=== PATIENT | female | born 1955 | race Caucasian/White ===

== ENCOUNTER → 2024-05-12 14:57 | Outpatient (BNVA) | payer MEDICARE, MEDICAID, SELFPAY | PROVIDERS: Visit Provider Physician Assistant | DX: M17.12 Unilateral primary osteoarthritis, left knee; Z01.818 Encounter for other preprocedural examination | CPT/HCPCS: 73560; 73565; 99204 ==

== ENCOUNTER 2024-07-11 13:21 | Outpatient (CLI) | payer MEDICARE, MEDICAID, SELFPAY ==
[2024-07-11 13:38] LABS: Charge for UA Resulting for Rev
[2024-07-11 13:41] LABS: Basophils % 0.1 %; Eosinophils # 0.1 10^3/uL (0.0-0.8); Eosinophils % 0.3 %; Hematocrit 42.4 % (36-47); Lymphocytes # 5.2 10^3/uL (0.8-4.8); Lymphocytes % 35.7 %; Mean Corpuscular HGB Conc 33.3 g/dL (30-55); Mean Corpuscular Hemoglobin 32.6 pg (27-33); Mean Corpuscular Volume 97.9 fl (85-98); Mean Platelet Volume 10.6 fL (7.4-10.4); Monocytes # 1.1 10^3/uL (0.2-0.9); Monocytes % 7.4 %; Neutrophils # 8.19 10^3/uL (1.8-7.7); Neutrophils % 56.2 %; Nucleated Red Blood Cells % 0 %; Platelet Count 303 10^3/cmm (157-399); Red Blood Count 4.33 10^6/uL (3.85-5.65); Red Cell Distribution Width 13.4 % (12.1-15.1)
[2024-07-11 13:43] LABS: Bilirubin Urine Negative (Negative); Blood Urine Negative (Negative); Glucose Urine UA Negative (Normal); Ketones Urine Negative (Negative); Leukocyte Esterase Urine Negative (Negative); Nitrate Urine Negative (Negative); Protein Urine Negative (Negative); Specific Gravity, Urine 1.019 (1.005-1.030); Urine Appearance Clear (CLEAR); Urine Color Yellow (Yellow); Urobilinogen Urine 0.2 mg/dL (Negative)
[2024-07-11 13:46] LABS: Bacteria Urine None Seen /hpf; Hyaline Casts Urine 2.46 /lpf; RBC Urine 0-2 /hpf (0-2); Squamous Epithelial Cell Urine 0-5 /hpf (0-5); WBC Urine 0-5 /hpf (0-5)
--- NOTE | 2024-07-11 14:00 | CT_ITS ---
WS: [id number] CT LEFT KNEE, NONCONTRAST [facility] TECHNIQUE: Noncontrast CT of the LEFT knee to include the LEFT hip and ankle. CLINICAL INFORMATION: M17.12 - Unilateral primary osteoarthritis, left knee COMPARISON: None. DLP: 895.[address] scans at [facility] use at least one of these dose optimization techniques: automated e xposure control; mA and/or kV adjustment per patient size (includes targeted exams where dose is matc hed to clinical indication); or iterative reconstruction. FINDINGS: Advanced degenerative arthritis LEFT knee with [id number]-yu-[id number] articulation. Hypertrophic changes along the joint line. Slightly hypertrophic patella. Mild degenerative arthritis sacroiliac joints. Sigmoid diverticulosis. Small suprapatellar effusion. Advanced osteopenia with lucency involving the proximal tibial plateau extending into the metaphysis. CT/CT knee LT [facility] [id number] IMPRESSION: Images obtained for preoperative purposes.
[2024-07-11 14:01] LABS: Alanine Aminotransferase 72 U/L (0-33); Alkaline Phosphatase 96 U/L (35-105); Anion Gap 15.8 (5-19); Aspartate Amino Transferase 44 U/L (0-32); Blood Urea Nitrogen 38 mg/dL (8-23); Carbon Dioxide 22 mmol/L (22-29); Chloride 106 mmol/L (98-107); Globulin 2.8 g/dL (1.3-4.6); Glomerular Filtration Rate 62.3 mL/min (90-130); Glucose 94 mg/dL (65-115); Osmolality Calculated 299 mOsm/kg (285-295); Potassium 3.8 mmol/L (3.5-5.1); Sodium 140 mmol/L (136-145); Total Bilirubin 0.2 mg/dL (0.15-1.2); Total Protein 6.8 g/dL (6.6-8.7)
[2024-07-17 02:25] LABS: Cotinine, Urine 820 ng/mL; Nicotine, Urine >1000 ng/mL
== END 2024-07-11 13:22 | disposition home or self-care (01) ==
PROVIDERS: Visit Provider Student in an Organized Health Care Education/Training Program
DX: Z01.818 Encounter for other preprocedural examination (principal); M17.12 Unilateral primary osteoarthritis, left knee; F17.200 Nicotine dependence, unspecified, uncomplicated; K57.90 Diverticulosis of intestine, part unspecified, without perforation or abscess without bleeding; M85.862 Other specified disorders of bone density and structure, left lower leg
CPT/HCPCS: 36415; 73700; 80053; 80323; 81003; 81015; 85025

== ENCOUNTER → 2024-07-12 08:12 | Outpatient (BNVA) | payer MEDICARE, MEDICAID, SELFPAY | PROVIDERS: Visit Provider Family Medicine | DX: Z01.818 Encounter for other preprocedural examination (principal); I44.0 Atrioventricular block, first degree | CPT/HCPCS: 93005 ==

== ENCOUNTER 2024-07-18 10:08 | Observation (INO) | payer MEDICARE, MEDICAID, SELFPAY ==
[2024-07-18] VITALS (33 sets, daily range): BP systolic 80–148; BP diastolic 37–75; PULSE 63–97; RESP 12–19; TEMP 36.2–37.2; O2SAT 93–100; BMI 31.0
[2024-07-18] MEDS: acetaminophen 1,000 MG/100 ML PIGGYBACK 400 MG IV ×3 (06:34→20:55)
[2024-07-18] MEDS: lactated ringers 500 ML IV (06:34)
[2024-07-18] MEDS: scopolamine 1.5 Patch 1 PATCH TRANSDERMA (06:35)
[2024-07-18] MEDS: sodium chloride 0.9% 1,000 ML 30 ML IV (06:35)
[2024-07-18] MEDS: ketorolac 30 mg/mL INJ IVP (06:39)
--- NOTE | 2024-07-18 06:40 | P.ANESASSM_ITS ---
Pre-Anesthetic Assessment Height/Weight: Height 5 ft 4 in Weight 181 lb Temp Pulse Resp BP Pulse Ox O2 Del Method 97.4 F L 63 18 98/64 99 Room Air 07/18/24 06:14 07/18/24 06:14 07/18/24 06:14 07/18/24 06:14 07/18/24 06:14 07/18/24 06:17 Preop Diagnosis: Left knee degenerative joint disease Operation Date: 07/18/24 07:00 Proposed Procedures p Abundio Robot Total Knee Arthroplasty(Left) - Gerber Youssef DO Last intake: Intake Last Liquid Date 07/17/24 Last Liquid Time 22:30 Last Solid Date 07/17/24 Last Solid Time 18:00 Social Tobacco 1/2 pack per day pack(s) per day Exam alert, oriented x 3, clear to auscultation bilaterally and regular rate & rhythm Airway Submandibular: within normal limits Cervical ROM: within normal limits Mallampati: Class III Dentition: false Comments: Comments: upper and lower dentures Pulmonary smoker, worked up for COPD and was told she didn't have it. no inhaler use CV/HEM Coronary Artery Disease 7-8 stents, patient states most recent was in 2018. on plavix, stopped 06/30 Hepatic transaminitis Anesthetic Plan ASA status: 3 Anesthesia: Regional (specify below) Other: PMH of CAD with prior stents(most recent in 2018) stopped plavix over 10 days ago Current smoker METS>4 Prior issue with waking up during her stent placements chronic pain, takes 5, 10-325 norco daily NPO since [place] adductor canal block performed pre-op Patient consents to GA if spinal is not able to be performed Risk of > 500 ml blood loss (7ml/kg in children): Yes, adequate IV access and fluids planned Medications/Allergies Home Medications Medication Instructions Recorded Confirmed Last Taken Type atenolol 50 mg tablet 50 mg PO DAILY 05/12/24 07/15/24 07/15/24 History clopidogrel 75 mg tablet 75 mg PO DAILY 05/12/24 07/15/24 06/30/24 History cyclobenzaprine 10 mg tablet 10 mg PO TID 05/12/24 07/15/24 Unknown History ezetimibe 10 mg tablet 10 mg PO DAILY 05/12/24 07/15/24 07/15/24 History hydrocodone 10 mg-acetaminophen 15 ml PO Q12H PRN Pain 05/12/24 07/15/24 07/13/24 History 325 mg/15 mL (15 mL) oral solution isosorbide mononitrate 30 mg 30 mg PO DAILY 05/12/24 07/15/24 07/15/24 History tablet,extended release 24 hr linaclotide 145 mcg capsule 145 mcg PO QAM 05/12/24 07/15/24 07/15/24 History losartan 25 mg tablet 25 mg PO DAILY 05/12/24 07/15/24 07/15/24 History nitroglycerin 0.4 mg sublingual 0.4 mg sublingual Q5M PRN Chest 05/12/24 07/15/24 Unknown History tablet Pain rosuvastatin 40 mg tablet 40 mg PO DAILY 05/12/24 07/15/24 07/15/24 History temazepam 30 mg capsule 30 mg PO BEDTIME PRN Insomnia 07/15/24 07/15/24 07/14/24 History temazepam 30 mg capsule mg 07/15/24 Unknown History Allergies Allergy/AdvReac Type Severity Reaction Status Date / Time meperidine [From Demerol] Allergy Intermediate hives Verified 07/12/24 08:52 Current Medications Generic Name Dose Route Start Last Admin Trade Name Freq PRN Reason Stop Dose Admin Sodium Chloride 1,000 mls @ 30 mls/hr 07/18/24 06:00 07/18/24 06:35 Sodium Chloride 0.9% IV 07/19/24 05:59 30 mls/hr .Q24H SUZI Administration PFSH Anesthesia Social History Smoking and tobacco/nicotine status: current every day tobacco/nicotine user Data Anesthesia 07/18/24 06:20 07/18/24 06:20 Short CBC 07/18/24 Range/Units 06:20 WBC 9.27 (3.29-11.43) 10^3/uL Hgb 12.80 (11.27-16.99) g/dL Hct 37.8 (36-47) % MCV 97.4 (85-98) fl Plt Count 248 (157-399) 10^3/cmm Neut % (Auto) 46.7 % Neut # (Auto) 4.33 (1.8-7.7) 10^3/uL BMP 07/18/24 06:20 Sodium 143 Potassium 4.8 Chloride 105 Carbon Dioxide 26 BUN 29 H Creatinine 1.1 H Glucose 112 Calcium 9.2 Cardiac Studies: 2 No Data to Display
--- NOTE | 2024-07-18 06:51 | P.HP_ITS ---
Same Day Surgery H&P Indication for Procedure/HPI DATE OF PROCEDURE: July 18, 2024 CHIEF COMPLAINT/INDICATIONFOR SURGICAL PROCEDURE: Left knee degenerative joint disease PREOP DIAGNOSIS: Left knee degenerative joint disease PLANNED PROCEDURE: Operation Date: 07/18/24 07:00 Proposed Procedures p Abundio Robot Total Knee Arthroplasty(Left) - Gerber Youssef DO Medications/Allergies* Home Medications Medication Instructions Recorded Confirmed Type atenolol 50 mg tablet 50 mg PO DAILY 05/12/24 07/15/24 History clopidogrel 75 mg tablet 75 mg PO DAILY 05/12/24 07/15/24 History cyclobenzaprine 10 mg tablet 10 mg PO TID 05/12/24 07/15/24 History ezetimibe 10 mg tablet 10 mg PO DAILY 05/12/24 07/15/24 History hydrocodone 10 mg-acetaminophen 15 ml PO Q12H PRN Pain 05/12/24 07/15/24 History 325 mg/15 mL (15 mL) oral solution isosorbide mononitrate 30 mg 30 mg PO DAILY 05/12/24 07/15/24 History tablet,extended release 24 hr linaclotide 145 mcg capsule 145 mcg PO QAM 05/12/24 07/15/24 History losartan 25 mg tablet 25 mg PO DAILY 05/12/24 07/15/24 History nitroglycerin 0.4 mg sublingual 0.4 mg sublingual Q5M PRN Chest 05/12/24 07/15/24 History tablet Pain rosuvastatin 40 mg tablet 40 mg PO DAILY 05/12/24 07/15/24 History temazepam 30 mg capsule 30 mg PO BEDTIME PRN Insomnia 07/15/24 07/15/24 History temazepam 30 mg capsule mg 07/15/24 History Allergies/Adverse Reactions Allergy/AdvReac Type Severity Reaction Status Date / Time meperidine [From Demerol] Allergy Intermediate hives Verified 07/12/24 08:52 Current Medications: Generic Name Dose Route Start Last Admin Trade Name Freq PRN Reason Stop Dose Admin Sodium Chloride 1,000 mls @ 30 mls/hr 07/18/24 06:00 07/18/24 06:35 Sodium Chloride 0.9% IV 07/19/24 05:59 30 mls/hr .Q24H SUZI Administration Lactated Ringer's 500 mls @ 500 mls/hr 07/18/24 05:53 07/18/24 06:34 Lactated Ringers IV 07/18/24 06:52 500 mls/hr .Q1H ONE Administration Pertinent History/Comorbid Conditions* Social History Smoking and tobacco/nicotine status: current every day tobacco/nicotine user Pertinent Exam Findings alert, oriented x 3, operative site marked and procedure specific exam findings Please refer to detailed orthopedic examination on 05/12/2024: Previous surgical incision from previous ORIF with all hardware stuff has been removed was a standard midline incision well-healed with no signs of infection, this will be incorporated into total knee arthroplasty today. Left knee exam -Patellar crepitus with ROM -ROM 0-120 degrees -Medial and lateral joint line tenderness -Negative Tammy's -Negative valgus, negative varus -negative Sonali's test with pain and no clicking -Patient can wiggle toes and has a pedal pulse of 2+. Recommendations Surgery/Procedure today Other Plans: Plan to proceed to the OR today for left total knee arthroplasty?Abundio robotic assisted. The preoperative clearance process. We did review her smoking h istory which has been trying to quit. We did talk about possibilities of increased risk of perioperative complications she understands these risks and at this point I am still elects to proceed with surgical intervention as this has debilitated her ambulation and mobilization. Patient understands agrees current plan. Questions answered. Coding Level of Care Code Acute Code for Chg Burton
[2024-07-18 06:53] LABS: Basophils % 0.4 %; Eosinophils # 0.1 10^3/uL (0.0-0.8); Eosinophils % 1.3 %; Hematocrit 37.8 % (36-47); Lymphocytes # 3.8 10^3/uL (0.8-4.8); Mean Corpuscular HGB Conc 33.9 g/dL (30-55); Mean Corpuscular Volume 97.4 fl (85-98); Mean Platelet Volume 10.6 fL (7.4-10.4); Monocytes % 10.4 %; Neutrophils # 4.33 10^3/uL (1.8-7.7); Neutrophils % 46.7 %; Nucleated Red Blood Cells % 0 %; Platelet Count 248 10^3/cmm (157-399); Red Blood Count 3.88 10^6/uL (3.85-5.65); White Blood Count 9.27 10^3/uL (3.29-11.43)
[2024-07-18 07:03] LABS: Anion Gap 16.8 (5-19); Blood Urea Nitrogen 29 mg/dL (8-23); Calcium 9.2 mg/dL (8.5-10.5); Carbon Dioxide 26 mmol/L (22-29); Chloride 105 mmol/L (98-107); Creatinine Clr Calc Pharmacy 50.7373; Glomerular Filtration Rate 49.4 mL/min (90-130); Glucose 112 mg/dL (65-115); Osmolality Calculated 303 mOsm/kg (285-295); Potassium 4.8 mmol/L (3.5-5.1); Sodium 143 mmol/L (136-145)
[2024-07-18] MEDS: ceFAZolin 2,000 MG in sodium chloride 0.9% (plus) 50 ML 100 MG IV ×3 (07:06→22:26)
[2024-07-18] MEDS: tranexamic acid 1,000 mg/10mL SDV 1000 MG IV (07:50)
[2024-07-18] MEDS: tranexamic acid 1,000 mg/10mL SDV 500 MG XX (08:08)
[2024-07-18] MEDS: EPINEPHrine 1 mg/mL INJ 0.5 MG XX (08:08)
[2024-07-18] MEDS: ketorolac 30 mg/mL INJ 15 MG XX (08:08)
[2024-07-18] MEDS: ROPivacaine 0.2% Premix 100 mL 200 MG INTRA-ARTI (08:08)
[2024-07-18] MEDS: vancomycin 1,000 MG SDV 1000 MG XX (08:10)
--- NOTE | 2024-07-18 09:28 | W.PM.BPON ---
Date of Procedure: [07/18/2024] Surgeon: Gerber Youssef DO Clinical Laboratory Aides Teacher(s): Marc Youssef PA-C Procedure(s) performed: Left total knee arthroplasty?Abundio robotic assisted Findings of the procedure(s): Patient found to have severe left knee degenerative joint disease tricompartmental arthritic changes noted. Underwent left total knee arthroplasty Abundio robotic assisted as planned without issues or complications taken PACU stable condition. Estimated blood loss: 20 mL Specimen(s) removed: Tibia femur and patellar bone cuts removed Post-operative diagnosis: Left knee degenerative joint disease
--- NOTE | 2024-07-18 09:29 | P.OP_ITS ---
Operative Report Date of procedure: July 18, 2024 Surgeon: Gerber Youssef DO Operations Intelligence: Marc Youssef PA-C: PA was necessary for assistance in this case with leg positioning retraction and protection of neurovascular structures as well as assistance in implantation wound closure and dressing application. Procedure: Preoperative diagnosis: Left knee degenerative joint disease Post-op diagnosis: Same Procedure done: Left total knee arthroplasty, cemented?robotic assisted Abundio Implants: Sarahi triathlon size 4 femur CR cemented?left Sarahi triathlon size? 4 tibia universal baseplate cemented [place] triathlon symmetric patella size 31 mm [place] triathlon polyethylene 9mm Surgeon: Gerber Youssef DO Estimated blood?loss: 20 mL Tourniquet 70 minutes IV fluids: 1300 mL Urine output: 300 mL Complications: None Condition: stable Disposition: floor Brief History: Patient is a 69-year-old female with with chronic?left knee degenerative joint d isease.? Patient has been worked up in the outpatient setting in the orthopedic office at this point time through shared decision making given? [id number] arthritis as well as failed conservative treatment, and pt would?like to proceed with a?left total knee arthroplasty.? Through shared decision making elected to proceed with surgical intervention for?left total knee arthroplasty.? We talked about continued conservative treatment and surgical intervention as far as the risk benefits complications alternatives surgical and nonsurgical treatment options.? At this point time understanding patient risks with surgery he agrees to proceed with surgical intervention.? Once again? risk with surgery include but are not?limited to make it better make it worse blood clot, heart attack, stroke, on the table, infection, injury to nerves or vessels, persistent pain, arthrofibrosis, implant failure.? Understanding these risks patient agrees to proceed with surgical intervention consent was obtained in the office.? All questions answered. Procedure: Patient was seen and evaluated in the preoperative holding area.? Consent was reviewed and signed with patient with plan for?left total knee arthroplasty.? All questions answered.? Correct extremity marked.? Patient seen and evaluated by the anesthesia department and once cleared for surgery was taken back to the operative suite.? Patient was placed into a supine position on the OR table.? All bony prominences were well-padded.? Patient was appropriately secured to the bed.? Patient underwent anesthesia per the anesthesia department.? Patient received spinal anesthesia and? Rascon catheter was placed.? A nonsterile tourniquet was applied to the?left thigh.? At this point in time a final timeout performed.? Patient received appropriate preoperative antibiotics and TXA. Next the?left?lower extremity was then prepped and draped in standard orthopedic fashion. Esmarch tourniquet was used exsanguinate the?left?lower extremity.? Tourniquet was insufflated to 250 mmHg. A standard anterior incision was made over midline of the knee.? Sharp scalpel excision through skin and subcutaneous tissue full-thickness skin flaps were m eliezer.? Fascia was elevated off of the extensor retinaculum was stable with medial parapatellar arthrotomy was then made.? The performed standard sequential releases..? Immediately on entry into the joint patient was found to have severe eburnated bone and tricompartmental arthritic changes noted.? With significant osteophyte formation.? Next the the patella was then stuffed and the knee was then flexed.?? Reinier was placed superiorly around the anterior aspect of the femur this was freed of synovium and I subsequently then placed by 2 femur pins to establish my femur arrays for the Abundio robot.? These were then placed bicortically and? femur array was then appropriately secured with appropriate visualization.? Next attention was turned towards the tibial rays.? These were then drilled seque ntially bicortically in parallel fashion and intraincisional.? I then placed my guide as well as my tibial array on in place.? This was appropriately secured and had excellent visualization with the Abundio robot.? Next the tibial checkpoint as well as femur checkpoint were then placed.? At this point time I then subsequently established my head center as well as my medial?lateral malleoli as well as my checkpoints.? Next utilizing standard Abundio technology I then mapped out the appropriate points and confirmation points around the femur as well as the tibia in standard fashion.? Once this was then done I then removed all osteophytes in preparation for dynamic testing.? All osteophytes were removed as well as I removed the ACL and the PCL was excised due to its significant tearing and degeneration noted.? At this point time the knee was brought into full extension and we performed our standard evaluation of our gap balancing stressing his?ligaments and extension as well as flexion appropriate adjustments were made to have appropriate gap balancing in both flexion and extension.? This plan for final counts.? We get a preoperative plan evaluating our implants which was a size 4 femur and a size 4 tibia.? Next we brought in the Abundio robot and sequentially made our femur cuts.? All excess bony cuts were then removed.? Finally we made our tibial cut.? Once this was done a standard PCL retractor was then placed into this position I excised the medial and?lateral meniscus.? The tibial cut was then subsequently removed all excess bony debris was removed.? I then utilized a?lamina spreader box operator and remove the posterior osteophytes.? At this point time sized the tibia and confirmed this was a size 4.? I utilized our blunt probe to establish rotation of tibial implant.? Once this was done I then placed my tibia size 4 trial in appropriate position and then subsequently placed tibial pins to hold this into place placed a size 9 mm poly as well as a size 4 femur which was appropriately impacted in place knee was then subsequently brought into extension. Trials were then assessed,? this was stable with varus valgus stress in extension as well as had symmetrical translation when brought into flexion demonstrating symmetrical gaps. I had excellent balance gaps in flexion and extension with varus and valgus stresses.? At this point I was satisfied with these implants these were t hen verified and opened on the back table size 4 tibia, size 4 femur,? size 9 mm polythickness.? We did confirm appropriate gap balancing and stresses as well as alignment utilizing? Abundio and were satisfied with this plan.? ?At this point time with my trials in place I then towel clip the patella everted this made appropriate measurements subsequently utilizing freehand technique performed by patellar resurfacing this was confirmed to be appropriate resection and subsequently sized to be a 31 mm symmetric.? My drill peg guides were then clamped and appropriate position and appropriate position in the patella for appropriate tracking and parallel with the joint.? Pegs were drilled trial implant was placed and the knee was then subsequently ranged and found to have excellent patellar tracking.? Femur pegs were then drilled. All checkpoints as well as guidepins and arrays were removed and appropriate counts made.? Satisfied with our tibial placement rotation I then utilized the keel punch and prepped the tibia.? At this point time all of our trial implants were removed.? ? The wound bed? was thoroughly irrigated and dried and prepped for cementation.? Cement was mixed on the back table.? Once cement was ready this was then covered onto the tibia and the tibial baseplate was then impacted and all excess cement was removed.? Next the polyethylene was then impacted into place on the tibial baseplate.? Next cement was placed onto the femur as well as under the femur implants and impacted in to place and all excess cement was extruded and removed.? Knee was taken into full extension? to clear all excess cement was removed.? Warm saline was placed over the joint.? I then towel clip patella and dried for cementation. cemented the patella into place.? This was all clamped and the cement was allowed to cure.? Thorough irrigation performed with pulse?lavage.? I then placed my periarticular injection while the cement was curing.? Once cured the knee was taken through range of motion and had excellent stability and gaps were balanced in flexion and extension.? Tourniquet was then deflated. hemostasis satisfactory with electrocautery. Vancomycin powder was placed in the incision for antibiotic prophylaxis. Next I then subsequently closed the capsule with Ethibond suture as well as a running strata fix suture.? Knee was then taken through range of motion 20 times.? Next the skin was then closed in?layered fashion of running stratifix sutures of deep and subcutaneous tissue and skin.? ?closed in flexion and Prineo glue was then placed over the incision this allowed to cure.? Incision was covered with srinivasan, with ABDs soft roll and Gabriel wrap.? Patient was then awakened from anesthesia and taken to PACU in stable condition. Disposition: Patient taken to PACU in stable condition will be admitted to the floor for pain control PT/OT weight-bear as tolerated?left?lower extremity dressing changes as needed, DVT prophylaxis. Pain control. Patient will receive appropriate postoperative antibiotics. patient will be seen today by the internal medicine team for medical management.? Patient will follow up with the office in 2 weeks.? Patient understands agrees with current plan.? All questions answered.
--- NOTE | 2024-07-18 09:42 | XRR_ITS ---
PROCEDURE INFORMATION: Exam: XR Left Knee Exam date and time: 07/18/2024 10:10 AM Age: 69 years old Clinical indication: Device placement; Joint replacement hardware; Prior surgery; Surgery date: Post-operative (0-2 days); Surgery type: Post L tka, ; additional info: Post L tka, do in pacu TECHNIQUE: Imaging protocol: Radiologic exam of the left knee. Views: 1 or 2 views. COMPARISON: CT knee LT [facility] [id number] 07/11/2024 2:12 PM FINDINGS: Bones/joints: Status post recent left knee arthroplasty. No radiographic evidence of hardware complication. Postprocedural intra-articular air and subcutaneous air about the knee. Soft tissues: Postprocedural changes of the anterior knee soft tissues. XR/XR knee LT 1-2V [id number] IMPRESSION: Status post recent left knee arthroplasty. No radiographic evidence of hardware complication.
--- NOTE | 2024-07-18 09:57 | PM.PACU ---
PACU note Narrative: Patient is a 69-year-old female just underwent a left total knee arthroplasty. Pt transferred to PACU in stable condition. Dressing is dry. pt is awake and alert. pt can wiggle toes. Compartments are soft and compressible. Distal pulses are palpable toes are warm and well-perfused. Cap refill is normal and under 2 seconds. Unable to assess sensation to foot due to residual spinal. Unable to further assess motor function such as dorsiflexion plantarflexion of foot and straight leg raise due to residual spinal. Pain is controlled. Exam: awake Disposition: admitted
--- NOTE | 2024-07-18 10:17 | ECG_ITS ---
[facility] Test Date: 2024-07-18 Pat Name: Michaela Echeverria Department: Room: 271 Gender: Female [employer] Shover: : 1955 Requested By: Annia Lincoln Order Number: [id number] Rosario MD: Alfred Unger M.D. Measurements Intervals [place] Rate: 83 P: 48 WA: 210 QRS: 25 QRSD: 90 T: 11 QT: 381 QTc: 450 Interpretive Statements SINUS RHYTHM WITH FIRST DEGREE AV BLOCK Compared to ECG 07/12/2024 08:43:55 First degree AV block now present Sinus bradycardia no longer present Electronically Signed On 07-18-2024 12:04:51 CDT by Alfred Unger M.D. [id number]
--- NOTE | 2024-07-18 11:15 | P.CONIM_ITS ---
Providers/Reason For Consult 2 Consulting Physician/Specialty*: Luis E Melendez MD, hospitalist Reason for Consult*: Medical management Attending Physician: Gerber Youssef DO Primary Care Provider: Gerri Chiu M.D. History of Present Illness History of Present Illness Michaela Echeverria is a 69 year old female undergoing left total knee arthroplasty this morning by Dr. Youssef. This was without complications with estimated blood loss less than 40 cc. I have been asked to see her for medical management of her coronary disease, hypertension, hyperlipidemia. She is awake in the recovery room and denies any complaints currently other than some knee pain. She reports no recent cardiac events. She reports no preceding chest discomfort or shortness of breath. She does relate she continues to smoke. Review of Systems 2 General: Reports: 10 or more systems reviewed and unremarkable except in HPI and below Card: Denies: chest pain Resp: Denies: dyspnea GI: Denies: abdominal pain Medications/Allergies Home Medications Medication Instructions Recorded Confirmed Last Taken Type atenolol 50 mg tablet 50 mg PO DAILY 05/12/24 07/15/24 07/15/24 History clopidogrel 75 mg tablet 75 mg PO DAILY 05/12/24 07/15/24 06/30/24 History cyclobenzaprine 10 mg tablet 10 mg PO TID 05/12/24 07/15/24 Unknown History ezetimibe 10 mg tablet 10 mg PO DAILY 05/12/24 07/15/24 07/15/24 History hydrocodone 10 mg-acetaminophen 15 ml PO Q12H PRN Pain 05/12/24 07/15/24 07/13/24 History 325 mg/15 mL (15 mL) oral solution isosorbide mononitrate 30 mg 30 mg PO DAILY 05/12/24 07/15/24 07/15/24 History tablet,extended release 24 hr linaclotide 145 mcg capsule 145 mcg PO QAM 05/12/24 07/15/24 07/15/24 History losartan 25 mg tablet 25 mg PO DAILY 05/12/24 07/15/24 07/15/24 History nitroglycerin 0.4 mg sublingual 0.4 mg sublingual Q5M PRN Chest 05/12/24 07/15/24 Unknown History tablet Pain rosuvastatin 40 mg tablet 40 mg PO DAILY 05/12/24 07/15/24 07/15/24 History temazepam 30 mg capsule 30 mg PO BEDTIME PRN Insomnia 07/15/24 07/15/24 07/14/24 History temazepam 30 mg capsule mg 07/15/24 Unknown History Allergies Allergy/AdvReac Type Severity Reaction Status Date / Time meperidine [From Demerol] Allergy Intermediate hives Verified 07/12/24 08:52 Current Medications Generic Name Dose Route Start Last Admin Trade Name Freq PRN Reason Stop Dose Admin Sodium Chloride 1,000 mls @ 30 mls/hr 07/18/24 06:00 07/18/24 08:10 Sodium Chloride 0.9% IV 07/19/24 05:59 Infused .Q24H SUZI Infusion PFSH Acute 2 PFSH: Medical History (Updated 07/18/24 @ 11:20 by Luis E Melendez MD) Insomnia Tobacco dependency Hyperlipidemia Hypertension Coronary artery disease Surgical History History of coronary artery stent placement Social History Smoking and tobacco/nicotine status: current every day tobacco/nicotine user Vitals/I&O/Wt Last Vital Signs Temp 97.6 F 07/18/24 09:54 Pulse 83 07/18/24 10:27 Resp 17 07/18/24 10:27 BP 87/46 07/18/24 10:27 Pulse Ox 98 07/18/24 10:27 O2 Del Method Nasal Cannula 07/18/24 10:27 O2 Flow Rate 3 07/18/24 10:27 07/17/24 07/18/24 07/18/24 22:59 06:59 14:59 Intake Total 1850 / 1850 Output Total 320 / 320 Balance 1530 / 1530 Weight last 48 hrs Weight 82.1 kg Physical Exam 2 Narrative: General exam is a sleepy white female, in no distress and with no complaints other than some knee discomfort, currently on 3 L of oxygen HEENT: Atraumatic normocephalic. Oropharynx clear Neck is supple no lymphadenopathy or thyromegaly Cardiovascular regular rate and rhythm without murmur. Note that blood pressure is slightly low. Vital signs reviewed Lungs clear no wheezing or crackles Abdomen is soft nontender positive bowel sounds exam is deferred Extremities no cyanosis, or edema, dressing present left knee, distal cap refill intact Skin no rash Neuro no focal deficits Urinary Catheter Management: Rascon: Cath Placed During This Visit: yes Urinary Catheter Date of Insertion: 07/18/24 Urinary Catheter Time of Insertion: 07:40 Data 07/18/24 06:20 07/18/24 06:20 Other Labs: Urinalysis July 11 was negative EKG done today which I reviewed demonstrates sinus rhythm, normal axis, essentially normal EKG with the exception of a mild/minor first-degree AV block at 210 ms. A&P Assessment and plan (1) Osteoarthritis of left knee: Status post total knee arthroplasty on the left Postoperative management by surgery Check CBC and BMP in the morning to check fluid status as well as for postoperative anemia DVT prophylaxis per surgery. Note that she is already on Plavix. Could add Eliquis low-dose (2) Hypertension: Holding blood pressure medications currently, secondary to soft blood pressure until can reevaluate tomorrow (3) Coronary artery disease: Patient with history of coronary disease Continue Plavix, Imdur, rosuvastatin Reinitiate beta-cyndie depending on blood pressure tomorrow. Plan Tobacco dependency Other medical problems as outlined in past medical history Resume home medication Monitor blood pressure closely, holding blood pressure medication tomorrow until this can be reviewed as it is slightly soft today likely from anesthesia. Thank you for this consultation Consult Attestations 2 Medical Necessity Statement: As per primary Diagnoses Osteoarthritis of left knee M17.12 Hypertension I10 Coronary artery disease I25.10 Time Spent (min) 54
[2024-07-18] MEDS: oxyCODONE 5 mg IR Tab/Cap PO ×3 (12:04→22:27)
[2024-07-18] MEDS: cetylpyridinium Lozenge 1 EACH MUCOUS MEM (12:05)
[2024-07-18] MEDS: chlorhexidine gluconate 0.12% Btl 473 mL 30 ML MUCOUS MEM ×3 (12:06→20:56)
[2024-07-18] MEDS: lactated ringers 1,000 ML 100 ML IV ×2 (12:07→20:55)
[2024-07-18] MEDS: ketorolac 30 mg/mL INJ 15 MG IVP (13:28)
[2024-07-18] MEDS: HYDROmorphone 1 mg/mL INJ 1 mL 0.5 MG IVP ×2 (14:34→20:55)
[2024-07-18] MEDS: tranexamic acid 1,000 MG/100 ML PREMIX 600 MG IV (15:48)
[2024-07-18] MEDS: sennosides-docusate Tablet 2 TAB PO (17:13)
[2024-07-18] MEDS: mupirocin oint 22 gm 1 APPLIC NASAL (17:13)
[2024-07-18] MEDS: docusate sodium 100 mg Capsule PO (17:14)
[2024-07-18] MEDS: iron polysaccharide complex 150 mg Capsule PO (17:14)
[2024-07-18] MEDS: calcium carb-vit d 600mg/400unit 1 Tablet 1 EACH PO (17:14)
[2024-07-18] MEDS: TRAMadol 50 mg Tablet PO (18:17)
--- NOTE | 2024-07-18 22:19 | PC.NURSE ---
This nurse brought Oxycodone to patient's room for pain. Patient states I thought I could have the Dilaudid now. Patient educated that it is best to try oral pain medications first as she will most likely be discharged tomorrow on oral pain medications. Patient states Let's just go ahead and do the Dilaudid because it works better and I'm in a lot of pain.
[2024-07-19] VITALS (7 sets, daily range): BP systolic 107–137; BP diastolic 56–70; PULSE 71–98; RESP 16–20; TEMP 36.9–37.2; O2SAT 93–97
[2024-07-19] MEDS: oxyCODONE 5 mg IR Tab/Cap PO ×3 (02:31→10:50)
[2024-07-19] MEDS: acetaminophen 1,000 MG/100 ML PIGGYBACK 400 MG IV (02:32)
[2024-07-19 05:07] LABS: Basophils % 0.1 %; Hematocrit 31.2 % (36-47); Lymphocytes # 1.6 10^3/uL (0.8-4.8); Lymphocytes % 9.8 %; Mean Corpuscular HGB Conc 33.3 g/dL (30-55); Mean Corpuscular Hemoglobin 32.6 pg (27-33); Mean Corpuscular Volume 97.8 fl (85-98); Mean Platelet Volume 10.8 fL (7.4-10.4); Monocytes % 6.3 %; Neutrophils % 83.4 %; Nucleated Red Blood Cells % 0 %; Platelet Count 207 10^3/cmm (157-399); Red Blood Count 3.19 10^6/uL (3.85-5.65); Red Cell Distribution Width 13.2 % (12.1-15.1); White Blood Count 15.83 10^3/uL (3.29-11.43)
[2024-07-19 05:30] LABS: Anion Gap 15.1 (5-19); Blood Urea Nitrogen 31 mg/dL (8-23); Calcium 8.6 mg/dL (8.5-10.5); Carbon Dioxide 24 mmol/L (22-29); Chloride 105 mmol/L (98-107); Creatinine Clr Calc Pharmacy 46.5092; Glomerular Filtration Rate 44.7 mL/min (90-130); Glucose 178 mg/dL (65-115); Osmolality Calculated 299 mOsm/kg (285-295); Potassium 5.1 mmol/L (3.5-5.1); Sodium 139 mmol/L (136-145)
[2024-07-19] MEDS: ceFAZolin 2,000 MG in sodium chloride 0.9% (plus) 50 ML 100 MG IV (06:35)
--- NOTE | 2024-07-19 07:45 | P.PN_ITS ---
Subjective 2 Subjective: No concerns overnight. No hypotension. Has been up and about. Pain is under control. Medications: Reviewed: Yes Vitals/I&O/Wt Last Vital Signs Temp 98.4 F 07/19/24 07:41 Pulse 86 07/19/24 07:41 Resp 17 07/19/24 07:41 BP 128/68 07/19/24 07:41 Pulse Ox 96 07/19/24 07:41 O2 Del Method Room Air 07/19/24 07:41 O2 Flow Rate 3 07/18/24 10:52 07/18/24 07/19/24 07/19/24 22:59 06:59 14:59 Intake Total 1080 / 3730 150 / 3880 1000 / 1000 Output Total 650 / 970 Balance 430 / 2760 150 / 2910 1000 / 1000 Weight last 48 hrs Weight 82.1 kg Weight 82.1 kg Weight 82.1 kg Physical Exam 2 Narrative: General exam no distress Neck is supple no lymphadenopathy or thyromegaly Cardiovascular regular rate and rhythm without murmur. Note that blood pressure is slightly low. Vital signs reviewed Lungs clear no wheezing or crackles Abdomen is soft nontender positive bowel sounds Extremities no cyanosis, or edema, dressing present left knee, distal cap refill intact Urinary Catheter Management: Rascon: Cath Placed During This Visit: yes, but has since been removed by the nurse Reason for Continuing Indwelling Catheter: Required Immobilization for Trauma or Surgery or Anesthesia Urinary Catheter Date of Insertion: 07/18/24 Urinary Catheter Time of Insertion: 07:40 Date Urinary Catheter Removed: 07/18/24 Time Urinary Catheter Discontinued: 15:59 Data 07/19/24 04:20 07/19/24 04:20 A&P Assessment and plan (1) Osteoarthritis of left knee: Postoperative day #1 status post total knee arthroplasty on the left Postoperative management by surgery CBC BMP reviewed. Minor acute post surgery blood loss anemia DVT prophylaxis per surgery. Note that she is already on Plavix. Eliquis was added for DVT prophylaxis. Discussed risks and benefits with the patient, and what to watch for and report immediately if there is any bleeding. (2) Hypertension: Holding blood pressure medications currently, secondary to soft blood pressure until can reevaluate tomorrow (3) Coronary artery disease: Patient with history of coronary disease Continue Plavix, Imdur, rosuvastatin Reinitiate beta-cyndie depending on blood pressure tomorrow. Plan Tobacco dependency Other medical problems as outlined in past medical history Restart home medicines No change in overall chronic medications with discharge. Stable for discharge home. Thank you for this consultation Education given regarding Amyquis. Attestations 2 Medical Necessity Statement*: As per primary Diagnoses Osteoarthritis of left knee M17.12 Hypertension I10 Coronary artery disease I25.10 Time Spent (min) 18
[2024-07-19] MEDS: TRAMadol 50 mg Tablet PO (08:14)
[2024-07-19] MEDS: multivitamin therapeutic Tablet 1 TAB PO (08:14)
[2024-07-19] MEDS: ezetimibe 10 mg Tablet PO (08:14)
[2024-07-19] MEDS: iron polysaccharide complex 150 mg Capsule PO (08:15)
[2024-07-19] MEDS: atenolol 50 mg Tablet PO (08:15)
[2024-07-19] MEDS: clopidogrel 75 mg Tablet PO (08:15)
[2024-07-19] MEDS: sennosides-docusate Tablet 2 TAB PO (08:15)
[2024-07-19] MEDS: calcium carb-vit d 600mg/400unit 1 Tablet 1 EACH PO (08:15)
[2024-07-19] MEDS: atorvastatin 40 mg Tablet PO (08:15)
[2024-07-19] MEDS: docusate sodium 100 mg Capsule PO (08:16)
[2024-07-19] MEDS: isosorbide mononitrate ER 30 mg Tablet PO (08:16)
[2024-07-19] MEDS: ketorolac 30 mg/mL INJ 15 MG IVP (08:16)
[2024-07-19] MEDS: apixaban 5 mg Tablet 2.5 MG PO (08:16)
[2024-07-19] MEDS: lactated ringers 1,000 ML 100 ML IV (08:20)
[2024-07-19] MEDS: chlorhexidine gluconate 0.12% Btl 473 mL 30 ML MUCOUS MEM ×2 (08:20→13:04)
[2024-07-19] MEDS: mupirocin oint 22 gm 1 APPLIC NASAL (08:20)
--- NOTE | 2024-07-19 09:13 | PC.CHAP ---
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 [] Patient/Family/Request visit [] Outpatient visit [] Follow-up visit [] Physician referral [] Code/Alert [] Routine visit [] Staff referral [] Actively dying [] Patient sleeping [] Family support [] [] Out of room [] Palliative care [] [x] Receiving care in room [] Pre-surgical visit [] Trauma [] Long length of stay [] ICU visit [] Other: Relational/Emotional Strength [] Patient feels connected with others/family/visitors/staff [] Distress [] Loneliness/isolation [] Abandonment Spirituality of Patient [] Person of Sheila [] Attends Mu-Ism of their Sheila [] Believes in Prayer [] Reads Bible or Gnosticism materials [] There are Spiritual issues to be addressed Purchasing Intern Interventions [] Prayer [] Active listening [] Non-anxious presence [] Spiritual/emotional support [] Crisis/trauma care [] Spiritual counseling [] Bereavement support [] Provided bereavement packet [] Provided Bible/devotional materials [] Provided toy/stuffed animal, coloring book to patient or family member [] Provided Communion [] Anointing/[place] [] Salvation [] Completed spiritual assessment [] Other: Impact on Illness or Injury [] Angry [] Fearful [] Anxious [] Often cries [] Exhaustion [] Unable to work [] Unable to attend judaism [] Unable to walk/stand [] Unable to read [] Unable to drive [] Unable to eat/drink [] Unable to sleep [] Unable to be with family [] Patient intubated [] Other: Summary Time spent with patient
--- NOTE | 2024-07-19 13:29 | PM.DCS ---
Discharge Providers Date of Admission: 07/18/24 10:08 Date of Discharge: July 19, 2024 Attending Provider at Admission: Gerber Youssef DO Attending Provider at Discharge: Gerber Youssef DO Consults: Dr. Melendez?hospitalist Primary Care Provider: Jonathan Chiu MD Diagnoses at Discharge Discharge Diagnosis (1) Osteoarthritis of left knee: Status: Resolved (2) Hypertension: Status: Acute (3) Coronary artery disease: Status: Acute Reason for Visit Reason for Visit: M17.12 Brief History: Status post left total knee arthroplasty?Abundio robotic assisted Hospital Course Hospital Course Patient presented to the preoperative holding area with plan for left total knee arthroplasty after patient has been worked up in the outpatient setting for failed conservative treatment of left knee degenerative joint disease. Once cleared by anesthesia for surgery patient subsequently was taken back to the operative suite underwent anesthesia per anesthesia department and then subsequently underwent a left total knee arthroplasty. Procedure was performed without any complications patient was taken to PACU in stable condition patient recovered well in PACU and then was admitted to the floor postoperatively internal medicine was consulted and on board for medical management and assistance with care. Patient received appropriate PT/OT, postoperative antibiotics, postoperative TXA, pain control, postoperative DVT prophylaxis. Elevation and ice. Patient encouraged for knee range of motion allowed weightbearing as tolerated to the operative lower extremity. Dressing was changed as needed, labs were monitored daily. Patient recovered well postoperatively and worked well and progressed well with therapy. It was determined on postoperative day 1 the patient was stable for discharge from an orthopedic standpoint and medicine. Patient was comfortable with discharge and plan was discharged home. Patient received appropriate discharge instructions as well as pain medication and DVT prophylaxis postoperatively. Given appropriate instructions for dressing management. Patient will follow-up with Dr. Youssef/orthopedics in the office in 2 weeks. All questions answered. Understand if there is any issues questions or concerns and contact the office. Physical Exam Narrative: Examination left knee demonstrates dressings on and in place is clean dry and intact no saturation. Patient is able to wiggle toes plantarflex and dorsiflex ankle sensations intact light touch distally. Distal pulses are palpable. Patient has normal postoperative swelling and tenderness palpation about the left knee. Calf soft nontender compartments are soft compressible. Urinary Catheter Management: Rascon: Cath Placed During This Visit: yes, but has since been removed by the nurse Reason for Continuing Indwelling Catheter: Required Immobilization for Trauma or Surgery or Anesthesia Urinary Catheter Date of Insertion: 07/18/24 Urinary Catheter Time of Insertion: 07:40 Date Urinary Catheter Removed: 07/18/24 Time Urinary Catheter Discontinued: 15:59 Discharge Data Studies Completed and Pending Completed Studies During Hospitalization Category Date Time Status XR knee LT 1-2V 31363 Routine Exams 07/18/24 09:42 Completed Pending at discharge Category Date Time Status Basic Metabolic Panel AM LABS Lab 07/20/24 04:00 Ordered Basic Metabolic Panel AM LABS Lab 07/21/24 04:00 Ordered Complete Blood Count w/Auto AM LABS Lab 07/20/24 04:00 Ordered Complete Blood Count w/Auto AM LABS Lab 07/21/24 04:00 Ordered Radiology Impressions Knee X-Ray 07/18/24 09:42 IMPRESSION: Status post recent left knee arthroplasty. No radiographic evidence of hardware complication. Laboratory Results WBC 15.83 10^3/uL (3.29-11.43) H 07/19/24 04:20 RBC 3.19 10^6/uL (3.85-5.65) L 07/19/24 04:20 Hgb 10.40 g/dL (11.27-16.99) L 07/19/24 04:20 Hct 31.2 % (36-47) L 07/19/24 04:20 MCV 97.8 fl (85-98) 07/19/24 04:20 MCH 32.6 pg (27-33) 07/19/24 04:20 MCHC 33.3 g/dL (30-55) 07/19/24 04:20 RDW 13.2 % (12.1-15.1) 07/19/24 04:20 Plt Count 207 10^3/cmm (157-399) 07/19/24 04:20 MPV 10.8 fL (7.4-10.4) H 07/19/24 04:20 Neut % (Auto) 83.4 % 07/19/24 04:20 Lymph % (Auto) 9.8 % 07/19/24 04:20 Rincon % (Auto) 6.3 % 07/19/24 04:20 Eos % (Auto) 0.0 % 07/19/24 04:20 Baso % (Auto) 0.1 % 07/19/24 04:20 Neut # (Auto) 13.20 10^3/uL (1.8-7.7) H 07/19/24 04:20 Lymph # (Auto) 1.6 10^3/uL (0.8-4.8) 07/19/24 04:20 Rincon # (Auto) 1.0 10^3/uL (0.2-0.9) H 07/19/24 04:20 Eos # (Auto) 0.0 10^3/uL (0.0-0.8) 07/19/24 04:20 Baso # (Auto) 0.0 10^3/uL (0.0-0.1) 07/19/24 04:20 Nucleated RBC % (auto) 0 % 07/19/24 04:20 Nucleated RBCs # 0.0 /100WBC 07/19/24 04:20 Sodium 139 mmol/L (136-145) 07/19/24 04:20 Potassium 5.1 mmol/L (3.5-5.1) 07/19/24 04:20 Chloride 105 mmol/L (98-107) 07/19/24 04:20 Carbon Dioxide 24 mmol/L (22-29) 07/19/24 04:20 Anion Gap 15.1 (5-19) 07/19/24 04:20 BUN 31 mg/dL (8-23) H 07/19/24 04:20 Creatinine 1.2 mg/dL (0.5-0.9) H 07/19/24 04:20 GFR Calculation 44.7 mL/min (90-130) L 07/19/24 04:20 Glucose 178 mg/dL (65-115) H 07/19/24 04:20 Calculated Osmolality 299 mOsm/kg (285-295) H 07/19/24 04:20 Calcium 8.6 mg/dL (8.5-10.5) 07/19/24 04:20 Blood Type O Positive 07/18/24 06:20 Rho(D) Type Rh positive 07/18/24 06:20 Antibody Screen Negative 07/18/24 06:20 Vitals Last Vital Signs Temp 98.4 F 07/19/24 12:00 Pulse 71 07/19/24 12:00 Resp 20 H 07/19/24 12:00 BP 137/61 07/19/24 12:00 Pulse Ox 97 07/19/24 12:00 O2 Del Method Room Air 07/19/24 12:00 O2 Flow Rate 3 07/18/24 10:52 Discharge Plan Discharge Patient Disposition: Home Health Service Condition: Stable Prescriptions: New cephalexin 500 mg capsule 500 mg PO Q8H 10 Days Qty: 30 0RF Eliquis 2.5 mg tablet 2.5 mg PO BID 14 Days Qty: 28 0RF Continued isosorbide mononitrate 30 mg tablet extended release 24 hr 30 mg PO DAILY losartan 25 mg tablet 25 mg PO DAILY ezetimibe 10 mg tablet 10 mg PO DAILY linaclotide 145 mcg capsule 145 mcg PO QAM atenolol 50 mg tablet 50 mg PO DAILY cyclobenzaprine 10 mg tablet 10 mg PO TID clopidogrel 75 mg tablet 75 mg PO DAILY rosuvastatin 40 mg tablet 40 mg PO DAILY nitroglycerin 0.4 mg tablet, sublingual 0.4 mg sublingual Q5M PRN (Reason: Chest Pain) Rx Instructions: do not exceed 3 doses per episode temazepam 30 mg capsule 30 mg PO BEDTIME PRN (Reason: Insomnia) magnesium glycinate 100 mg magnesium Capsule 400 mg PO BEDTIME Held hydrocodone-acetaminophen 10-325 mg/15 mL(15 mL) solution 15 ml PO Q12H PRN (Reason: Pain) Hold Instructions: Resume on 08/02/24. Discharge Orders: Discharge Order (Routine); Ordered 07/19/24 Ordered By: Gerber Youssef Referrals: [facility] [Outside] Gerber Youssef DO [Physician] - 08/02/24 1:00 pm Discharge Diet: Regular Discharge Activity: Limit activity as instructed and Use walker/crutches as instructed Patient Instructions: Cephalexin (By mouth), Oxycodone/Acetaminophen (By mouth), Ondansetron (By mouth), Apixaban (By mouth), Acute Wound Care (DC), Knee Arthroscopy (DC), Opioid Safety, Post Anesthesia Care Activity Restrictions/Additional Instructions: Orthopedic Discharge instructions Sultana Dressing--Keep dressing on and dry. After 3 days you can remove some of the dressing and shower. disconnect battery pack when showering. Sultana dressing will stay on until follow up appt in 2 weeks, or you can remove the entire dressing discard after [address] with a new dry sterile Silverlon bandage dressing. The battery pack for the dressing will at 5-7 days. Battery pack can be removed and discarded once batteries . Patient may weight-bear as tolerate to the operative extremity Utilize crutches as needed Encourage knee range of motion Ice and elevate as needed for pain and swelling Take pain medication as prescribed Take antinausea medication as needed Take prescribed Eliquis twice daily for the next 14 days for blood clot prevention Continue your Plavix May supplement for pain with ibuprofen [id number] as needed No baths or soaks Follow-up in the orthopedic office in 2 weeks Contact the office for any questions or concerns Discharge Attestations Time Spent in Discharge Care*: less than 30 min Quality Metrics Clinical Quality Measures [ No reported AMI, CVA or VTE this stay] Coding Level of Care Code Acute Code for [facility] Fwd Diagnoses Osteoarthritis of left knee M17.12 Hypertension I10 Coronary artery disease I25.10
--- NOTE | 2024-07-19 14:23 | PC.NURSE ---
Discharge Note Patient discharged to home via private vehicle accompanied by daughter. Discharge instructions reviewed with patient and/or franchise sales representative. Mobile pharmacy medications and/or prescriptions provided. Belongings/home medications returned.
== END 2024-07-19 15:57 | disposition home health service (06) ==
LOC: MEDSURG 10:09
PROVIDERS: Physician Assistant; Admitting Provider Student in an Organized Health Care Education/Training Program; PCP Family Medicine; Visit Provider Student in an Organized Health Care Education/Training Program
PROC: 8E0Y0CZ Robotic Assisted Procedure of Lower Extremity, Open Approach (ICD-10-PCS; CPT 27447; principal; 2024-07-18 07:00)
DX: M17.12 Unilateral primary osteoarthritis, left knee (principal); I10 Essential (primary) hypertension; I25.10 Atherosclerotic heart disease of native coronary artery without angina pectoris; E78.5 Hyperlipidemia, unspecified; F17.200 Nicotine dependence, unspecified, uncomplicated; Z95.5 Presence of coronary angioplasty implant and graft; Z79.02 Long term (current) use of antithrombotics/antiplatelets; G89.29 Other chronic pain; Z79.891 Long term (current) use of opiate analgesic
CPT/HCPCS: 20985; 27447; 36415; 51702; 73560; 80048; 85025; 86850; 86900; 93005; 97110; 97116; 97161; 97165; 97530; C1776; G0378; J0131; J0171; J0690; J1100; J1170; J1885; J2250; J2371; J2704; J2795; J3370; J3535; J7030; J7120

== ENCOUNTER → 2024-08-02 12:56 | Outpatient (BNVA) | payer MEDICARE, MEDICAID, SELFPAY | PROVIDERS: PCP Family Medicine; Visit Provider Student in an Organized Health Care Education/Training Program | DX: M17.12 Unilateral primary osteoarthritis, left knee (principal); Z96.652 Presence of left artificial knee joint | CPT/HCPCS: 73560; 73565; 99024 ==

== ENCOUNTER 2024-08-30 06:00 | Outpatient (RCR) | payer MEDICARE, SELFPAY | END 2024-09-29 23:59 | disposition home or self-care (01) | LOC: MPT 06:00 | PROVIDERS: Visit Provider Physician Assistant | DX: Z47.1 Aftercare following joint replacement surgery (principal); Z96.652 Presence of left artificial knee joint | CPT/HCPCS: 97110; 97162 ==

== ENCOUNTER → 2024-09-13 15:02 | Outpatient (BNVA) | payer MEDICARE, MEDICAID, SELFPAY | PROVIDERS: PCP Family Medicine; Visit Provider Physician Assistant | DX: Z96.652 Presence of left artificial knee joint (principal) | CPT/HCPCS: 73560; 73565; 99024 ==

== ENCOUNTER 2024-09-30 06:00 | Outpatient (RCR) | payer MEDICARE, SELFPAY | END 2024-10-29 23:59 | disposition home or self-care (01) | LOC: MPT 06:00 | PROVIDERS: Visit Provider Physician Assistant | DX: Z47.1 Aftercare following joint replacement surgery (principal); Z96.652 Presence of left artificial knee joint | CPT/HCPCS: 97110 ==

== ENCOUNTER 2024-10-30 06:00 | Outpatient (RCR) | payer MEDICARE, SELFPAY | END 2024-11-29 23:59 | disposition home or self-care (01) | LOC: MPT 06:00 | PROVIDERS: Visit Provider Physician Assistant | DX: Z47.1 Aftercare following joint replacement surgery (principal); Z96.652 Presence of left artificial knee joint | CPT/HCPCS: 97110; G0283 ==

== ENCOUNTER → 2024-11-17 15:09 | Outpatient (BNVA) | payer MEDICARE, MEDICAID, SELFPAY | PROVIDERS: PCP Family Medicine; Visit Provider Physician Assistant | DX: Z96.652 Presence of left artificial knee joint (principal) | CPT/HCPCS: 73560; 73565; 99213 ==